=== PATIENT | female | born 1940 | race Caucasian/White ===

== ENCOUNTER → 2018-01-07 | Day surgery (SDC) | payer OTHER ==
--- NOTE | 2018-01-02 08:49 | MH ---
cc: [facility], [facility] DATE OF ADMISSION 01/07/2018 ADMISSION DIAGNOSIS Cataract, right eye. HISTORY OF PRESENT ILLNESS This 77-year-old white female is coming through [facility] for the purpose of a lens extraction of the right eye with intraocular lens implant under general anesthesia. She has a history of bilateral cataracts and noted to have cloudy vision in both eyes interfering with her daily activities and elected to have the above procedure. Her best-corrected visual acuity in room light is 20/100 in the right eye and 20/100 +1 in the left. PAST MEDICAL HISTORY The patient has a history of hypertension, claustrophobia, cholesterol problems and breathing problems due to allergies. PAST SURGICAL HISTORY Past surgical history includes hysterectomy and skin cancers. MEDICATIONS Daily medication includes: 1. Amlodipine. 2. Triamterene/hydrochlorothiazide. 3. Levocetirizine. 4. Simvastatin. 5. Baby aspirin. 6. Vitamins B12 and C. 7. Calcium. ALLERGIES She is allergic to CODEINE. SOCIAL HISTORY Two packs a day smoking per month for 2 years and drinks one Martini or two lorie every night. FAMILY HISTORY Family history is positive for mother with cataract. REVIEW OF SYSTEMS HEAD: Patient denies severe headaches, dizziness or recent head injury. EARS: Patient denies hearing loss, ear pain, discharge or ringing in the ears. NOSE: The patient has some nasal discharge from sinuses. MOUTH AND THROAT: Patient denies soreness of the mouth or tongue, bleeding gums, trouble swallowing, changes in voice or sore throat. NECK: Patient denies neck pain or swelling, limitation of neck movement or neck injury. CARDIOPULMONARY SYSTEM: The patient has a chronic cough due to postnasal drip. She does sleep on a few pillows. Patient denies shortness of breath, hemoptysis, chest pain, wheezing, palpitations or light-headedness. GI SYSTEM: The patient has a history of hemorrhoids. Patient denies poor appetite, nausea, vomiting, abdominal pain, ulcers, or change in bowel habits. SYSTEM: The patient does have urinary frequency day and night due to bladder prolapse, gets up 3 times a night to urinate. Denies dysuria or change in urine color. NERVOUS SYSTEM: Patient denies convulsions, vertigo, stroke, numbness or weakness. PHYSICAL EXAMINATION VITAL SIGNS: Blood pressure 124/70, pulse 84, respirations 20. HEAD: Normocephalic, atraumatic. NOSE: Without rhinorrhea. THROAT: Clear. NECK: Supple. CHEST: Clear. HEART: Regular rhythm. ABDOMEN: Without tenderness. EXTREMITIES: Without edema. NEUROLOGIC: Within normal limits. MENTAL STATUS: Within normal limits. EYE EXAM: The patient's best-corrected visual acuity is 20/100 in the right eye and 20/100 +1 in the left eye in room light. Visual riojas are full to confrontation testing. Extraocular muscle exam reveals full versions with orthophoria at distance and near. Pupils are 3 mm equal, round, and reactive to light without afferent defect. Anterior segment examination reveals a skin lesion on the left lower lid which may be a basal cell carcinoma and some benign growth on the right lower lid which may be verruca. There are nuclear sclerotic and cortical cataract changes bilaterally. Intraocular pressure is 24 in the right eye and 23 in the left by applanation tonometry. Dilated fundus exam revealed sharp disks with cup-to-disk ratio of 0.2 bilaterally. The macula of the right eye is within normal limits. There is some retinal pigment epithelial changes in the macula of the left eye. A posterior vitreous detachment is present bilaterally. IMPRESSION 1. Bilateral cataracts. 2. Posterior vitreous detachment, both eyes. 3. Ocular hypertension. PLAN Lens extraction of the right eye with intraocular lens implant under general anesthesia secondary to claustrophobia and anxiety through [facility]. The patient has been cleared medically. She has been counseled as to the risks, benefits and alternatives and elected to proceed. I feel that cataract surgery will improve the quality of life and activities of daily living in this patient. MD TAM Carpenter/ASTON /11:38 AM /8:32 AM
[~2018-01-07] VITALS: Ht 162.6 cm; Wt 58.0 kg
[~2018-01-07] MED LIST: ACETYLCHOLINE CHL OPHT SOLN 1:100 2 ML VIAL ONE; ALBUAER3 INH; BENA20TA3 PO; CEPH500C3 PO; CHLORHEXIDINE GLUCONATE 2 % 1 PACK (2 CLOTHS) TOPICAL PRN; CIPR250T2 PO; CYCLOPENTOLATE HCL 1% OPHT SOLN 2 ML BTL ONE; DEXAMETHASONE SOD PHOS 4 MG/ML VIAL IV ONE; EPINEPHrine HCL PF/SF (1:1000) 1 MG/ML AMP I-OCULAR ONE; FAMOTIDINE 20 MG/2 ML VIAL ONE; FEXO60TA36 PO; GATIFLOXACIN 0.5% OPHT SOLN 2.5 ML BTL ONE; LACTATED RINGER'S 1000 ML IV PRN; LIDOCAINE HCL 1% PF 5 ML SYRINGE OTHER ONE; METOPROLOL TARTRATE 25 MG TAB PO PRN; MIDAZOLAM HCL 2 MG/2 ML VIAL ONE; ONDANSETRON HCL 4 MG/2 ML VIAL IV PUSH ONE; OXYC1TAB63 PO; PHENYLEPHRINE HCL 2.5% OPTH SOLN 2 ML BTL ONE; PILOCARPINE HCL 2% OPHT SOLN 15 ML BTL ONE; POVIDONE IODINE 5% (ANTISEPSIS KIT) 4 APPLICATIONS EACH NARE PRN; PROPARACAINE HCL 0.5% OPHT SOLN 15 ML BTL ONE; PROPARACAINE HCL 0.5% OPHT SOLN 15 ML BTL RIGHT EYE ONE; PROPOFOL 200 MG/20 ML AMP IV ONE; SIMV80TA PO; SODIUM CHLORID 0.9% 500 ML IV PRN; TETRACAINE 0.5% OPTH SOLN 4 ML BTL ONE; TOBRAMYCIN/DEXAMETHASONE OPTH OINT 3.5 GM TUBE ONE; TRIA1CAP6 PO; TROPICAMIDE 1% OPHT SOLN 15 ML BTL ONE; VISCOAT OPHT IRRIG SOLN 0.75 ML SYRINGE ONE; acetaZOLAMIDE SEQUELS 500 MG SUSTAINED RELEASE CAP ONE
[2018-01-07] MEDS: CYCLOPENTOLATE HCL 1% OPHT SOLN 2 ML BTL RIGHT EYE SCH ×4 (06:52→07:01)
[2018-01-07] MEDS: TROPICAMIDE 1% OPHT SOLN 15 ML BTL RIGHT EYE SCH ×4 (06:52→07:01)
[2018-01-07] MEDS: GATIFLOXACIN 0.5% OPHT SOLN 2.5 ML BTL RIGHT EYE SCH ×4 (06:52→07:01)
[2018-01-07] MEDS: PHENYLEPHRINE HCL 2.5% OPTH SOLN 2 ML BTL RIGHT EYE SCH ×4 (06:52→07:01)
[2018-01-07] MEDS: DICLOFENAC SOD 0.1% OPHT SOLN 2.5 ML BTL RIGHT EYE SCH ×2 (07:00→07:03)
[2018-01-07 08:55] VITALS: PULSE 64
[2018-01-07 10:00] VITALS: BP 120/59; PULSE 69; RESP 16; TEMP 97.6; O2SAT 100
--- NOTE | 2018-01-08 09:30 | MP ---
cc: [facility] DATE OF SURGERY 01/07/2018 PREOPERATIVE DIAGNOSIS Cataract, right eye. POSTOPERATIVE DIAGNOSIS Cataract, right eye. OPERATION Extracapsular cataract extraction with posterior chamber intraocular lens implant by phacoemulsification, right eye. SURGEON Barrera Britton M.D. ANESTHESIA General. COMPLICATIONS None. INDICATIONS See history and physical previously dictated. OPERATIVE PROCEDURE The patient was brought to the operating room. After the patient had attained adequate general anesthesia the right eye was prepped and draped in the usual sterile ophthalmic manner. A lid speculum was inserted in the right eye. A 4-0 silk bridle suture was placed through the conjunctiva near the superior rectus muscle and it was tagged to the drape. A fornix-based conjunctival flap was prepared spanning approximately 5 mm in width. Hemostasis was obtained with wet-field cautery. A 3.5 mm groove was made 1 mm from the limbus and dissected up to the limbus in the form of a scleral pocket incision. A stab incision was then made at the 2 o'clock position. Viscoelastic was injected into the anterior chamber. The anterior chamber was entered with a 2.75 mm keratome through the scleral pocket incision. A 360 degree continuous curvilinear capsulorrhexis was then performed. Hydrodissection was utilized to divide the nucleus into inner and outer components and to separate the cortex from the capsule. Phacoemulsification was then utilized to remove the nucleus. The outer nuclear layer was removed with irrigation and aspiration and short bursts of ultrasound as necessary. The cortex was removed with the irrigation-aspiration hand piece. The posterior capsule was polished with the capsule polisher. Viscoelastic was injected into the capsular bag. The intraocular lens was inspected and found to be in good condition. The lens utilized was an Jerzy model number SA60AT with a power of +21.5 diopters. The lens was inserted into the capsular bag. The viscoelastic in the anterior chamber was then removed with the irrigation-aspiration hand piece. Viscoelastic was also removed from beneath the intraocular lens. The anterior chamber was filled with Miochol-E through the stab incision and pressurized. The wound was closed with one interrupted 10-0 nylon suture. The wound was checked for leaks and there were none. The 4-0 bridle suture was removed. The conjunctival flap was brought down over the wound and secured with cautery. Pilocarpine 2% eye drops were instilled topically. The lid speculum was removed. TobraDex ophthalmic ointment was applied. The eye was double patched and shielded. The patient tolerated the procedure well and left the Operating Room in satisfactory condition. MD TAM Carpenter/ASTON /8:56 AM /9:22 AM
== END | disposition home or self-care (01) ==
LOC: PHSDC 06:30
PROVIDERS: ATTEND Ophthalmology
DX: H26.9 Unspecified cataract (principal); H43.813 Vitreous degeneration, bilateral; I10 Essential (primary) hypertension; F41.9 Anxiety disorder, unspecified; F17.210 Nicotine dependence, cigarettes, uncomplicated; Z85.828 Personal history of other malignant neoplasm of skin; Z90.710 Acquired absence of both cervix and uterus; Z88.5 Allergy status to narcotic agent
CPT/HCPCS: 00142; 66984; J0171; J1100; J2250; J2405; J7040; V2632

== ENCOUNTER → 2018-02-11 | Outpatient (CLI) | payer OTHER ==
--- NOTE | 2018-02-08 09:20 | MH ---
cc: Irving Britton MD, Clifford N MD DATE OF ADMISSION: 02/11/2018 ADMISSION DIAGNOSIS: Cataract, left eye. HISTORY OF PRESENT ILLNESS: This 77-year-old white female is coming through [facility] for the purpose of a lens extraction of the left eye with intraocular lens implant under general anesthesia. She has noted decreasing visual acuity interfering with her daily activities and elected to have the above procedure. She had a similar procedure on the right eye in December of this year and did well postoperatively and now requests cataract surgery for her left. Her best corrected visual acuity is 20/20 in the right eye and 20/100+1 in the left eye in room light. PAST MEDICAL HISTORY: The patient has a history of hypertension, high cholesterol, breathing problems due to allergies and claustrophobia. PAST SURGICAL HISTORY: Includes hysterectomy, cervical procedures and skin cancers, 5 or 6 of them, as well as the cataract surgery on her right eye in December. MEDICATIONS: Include amlodipine, triamterene, hydrochlorothiazide, levocetirizine, simvastatin, 81 mg of aspirin, vitamins B12 and C and calcium. ALLERGIES: SHE IS ALLERGIC TO CODEINE. SOCIAL HISTORY: She smokes 2 cigarettes a month for a couple of years and drinks 1 martini or 2 lorie every night. FAMILY HISTORY: Positive for mother with cataracts. REVIEW OF SYSTEMS: HEAD: Patient denies severe headaches, dizziness or recent head injury. EARS: Patient denies hearing loss, ear pain, discharge or ringing in the ears. NOSE: The patient has nasal discharge due to sinus problems. She has had postnasal drip and gets chronic cough from that. Patient denies obstruction or frequent colds. MOUTH AND THROAT: Patient denies soreness of the mouth or tongue, bleeding gums, trouble swallowing, changes in voice or sore throat. NECK: Patient denies neck pain or swelling, limitation of neck movement or neck injury. CARDIOPULMONARY SYSTEM: Patient denies shortness of breath, orthopnea, chronic cough, sputum production, hemoptysis, chest pain, wheezing, palpitations or light-headedness. GI SYSTEM: Patient denies poor appetite, nausea, vomiting, abdominal pain, ulcers, or change in bowel habits. She has hemorrhoids. SYSTEM: The patient has urinary frequency due to bladder prolapse. She gets up at night 3 times to urinate. , dysuria, change in urine color. NERVOUS SYSTEM: Patient denies convulsions, vertigo, stroke, numbness or weakness. PHYSICAL EXAMINATION: VITAL SIGNS: Blood pressure 126/72, pulse 88, respirations 16. HEENT: Head normocephalic, atraumatic. Nose without rhinorrhea. Throat clear. NECK: Supple. CHEST: Clear. CARDIOVASCULAR: Regular rhythm. ABDOMEN: Without tenderness. EXTREMITIES: Without edema. NEUROLOGIC: Within normal limits. Mental status within normal limits. EYE EXAMINATION: The patient's best corrected visual acuity is 20/20 in the right eye and 20/100+1 in the left eye in room light. Visual riojas are full to confrontation testing. Extraocular muscle exam reveals full versions with orthophoria at distance and near. Pupils are 3 mm, equal, round, and reactive to light, without afferent defect. Anterior segment examination reveals a verruca on the right lower lid and probable basal cell on the left lower lid margin. There is a posterior chamber intraocular lens in place in the right eye and nuclear sclerotic and cortical cataract present in the left eye. The intraocular pressure is 21 in the right eye, 23 in the left eye by applanation tonometry. Dilated fundus exam revealed sharp disc with cup-to-disc ratio of 0.2 bilaterally. The macula is clear in the right eye with some retinal pigment epithelial changes in the left macula. A posterior vitreous detachment is present bilaterally. IMPRESSION: 1. Cataract, left eye. 2. Pseudophakia, right eye. 3. Posterior vitreous detachment, both eyes. 4. Mild macular degeneration, left eye. PLAN: Lens extraction of the left eye with intraocular lens implant under general anesthesia due to the patient's claustrophobia and anxiety through [facility]. The patient has been cleared medically. She has been counseled as to the risks, benefits and alternatives and elected to proceed. I feel that cataract surgery will improve the quality of life and activities of daily living in this patient. MD TAM Carpenter//itzel , 04:43 PM , 05:19 PM
[~2018-02-11] VITALS: Ht 162.6 cm; Wt 54.5 kg
[~2018-02-11] MED LIST changes: -ALBUAER3 INH; +AMLO2.5T PO; +ASPI81TA23 PO; -CEPH500C3 PO; -CIPR250T2 PO; -DEXAMETHASONE SOD PHOS 4 MG/ML VIAL IV ONE; +DICLOFENAC SOD 0.1% OPHT SOLN 2.5 ML BTL ONE; +LEVOTAB PO; -LIDOCAINE HCL 1% PF 5 ML SYRINGE OTHER ONE; -METOPROLOL TARTRATE 25 MG TAB PO PRN; -MIDAZOLAM HCL 2 MG/2 ML VIAL ONE; -ONDANSETRON HCL 4 MG/2 ML VIAL IV PUSH ONE; -OXYC1TAB63 PO; +PROPARACAINE HCL 0.5% OPHT SOLN 15 ML BTL LEFT EYE ONE; -PROPARACAINE HCL 0.5% OPHT SOLN 15 ML BTL RIGHT EYE ONE; -PROPOFOL 200 MG/20 ML AMP IV ONE; +SODIUM CHLORID 0.9% 500 ML INJ 500 ML ONE; -SODIUM CHLORID 0.9% 500 ML IV PRN; -acetaZOLAMIDE SEQUELS 500 MG SUSTAINED RELEASE CAP ONE
[2018-02-11] MEDS: GATIFLOXACIN 0.5% OPHT SOLN 2.5 ML BTL LEFT EYE SCH ×4 (06:45→06:54)
[2018-02-11] MEDS: TROPICAMIDE 1% OPHT SOLN 15 ML BTL LEFT EYE SCH ×4 (06:45→06:54)
[2018-02-11] MEDS: CYCLOPENTOLATE HCL 1% OPHT SOLN 2 ML BTL LEFT EYE SCH ×4 (06:45→06:54)
[2018-02-11] MEDS: DICLOFENAC SOD 0.1% OPHT SOLN 2.5 ML BTL LEFT EYE SCH ×4 (06:45→06:54)
[2018-02-11] MEDS: PHENYLEPHRINE HCL 2.5% OPTH SOLN 2 ML BTL LEFT EYE SCH ×4 (06:45→06:54)
[2018-02-11 08:36] VITALS: PULSE 66
[2018-02-11 08:38] VITALS: TEMP 97.5
[2018-02-11 09:00] VITALS: PULSE 71
--- NOTE | 2018-02-11 09:24 | MP ---
cc: Irving Britton MD DATE OF OPERATION: 02/11/2018 PREOPERATIVE DIAGNOSIS: Cataract left eye. POSTOPERATIVE DIAGNOSIS: Cataract left eye. OPERATION: Extracapsular cataract extraction with posterior chamber intraocular lens implant by phacoemulsification, left eye. SURGEON: Irving Britton M.D. ANESTHESIA: General. COMPLICATIONS: None. INDICATIONS: See history and physical previously dictated. OPERATIVE PROCEDURE: After the patient had attained adequate general anesthesia, the left eye was prepped and draped in usual sterile ophthalmic manner. A lid speculum was inserted in the left eye. A 4-0 silk bridle suture was placed through the conjunctiva near the superior rectus muscle and it was tagged to the drape. A fornix-based conjunctival flap was prepared spanning approximately 5 mm in width. Hemostasis was obtained with wet-field cautery. A 3.5 mm groove was made 1 mm from the limbus and dissected up to the limbus in the form of a scleral pocket incision. A stab incision was then made at the 2 o'clock position. Viscoelastic was injected into the anterior chamber. The anterior chamber was entered with a 2.75 mm keratome through the scleral pocket incision. A 360 degree continuous curvilinear capsulorrhexis was then performed. Hydrodissection was utilized to divide the nucleus into inner and outer components and to separate the cortex from the capsule. Phacoemulsification was then utilized to remove the nucleus. The outer nuclear layer was removed with irrigation and aspiration and short bursts of ultrasound as necessary. The cortex was removed with the irrigation/aspiration handpiece. The posterior capsule was polished with the capsule polisher. Viscoelastic was injected into the capsular bag. The intraocular lens was inspected and found to be in good condition. The lens utilized was a Jerzy, model number SA60AT with a power of +21.5 Diopters. The lens was inserted into the capsular bag. The viscoelastic in the anterior chamber was then removed with the irrigation-aspiration handpiece. Viscoelastic was also removed from beneath the intraocular lens. The anterior chamber was filled with Miochol-E through the stab incision and pressurized. The wound was checked for leaks at this pressure and normalized pressure and there were none. The 4-0 bridle suture was removed. The conjunctival flap was brought down over the wound and secured with cautery. Pilocarpine 2% eye drops were instilled topically. The lid speculum was removed. TobraDex ophthalmic ointment was applied. The eye was double patched and shielded. The patient tolerated the procedure well and left the Operating Room in satisfactory condition. MD TAM Carpenter/MILTON , 08:38 AM , 09:23 AM
[2018-02-11 09:30] VITALS: BP 115/75; PULSE 70; RESP 14; O2SAT 98
== END ==
LOC: PHSDC 06:06
PROVIDERS: ATTEND Ophthalmology
DX: H26.9 Unspecified cataract (principal); I10 Essential (primary) hypertension; E78.00 Pure hypercholesterolemia, unspecified; Z79.899 Other long term (current) drug therapy; F17.210 Nicotine dependence, cigarettes, uncomplicated
CPT/HCPCS: 00142; 66984; J0171; J7040; V2632